=== PATIENT | female | born 1945 | race Caucasian/White ===

== ENCOUNTER → 2023-10-30 06:20 | Day surgery (SDC) | payer OTHER, SELFPAY | LOC: GI 06:20 | PROVIDERS: ATTENDING PHYSICIAN Specialist | DX: K51.50 Left sided colitis without complications (principal) | CPT/HCPCS: 45380; 88305; 88341; 88342 ==

== ENCOUNTER → 2023-11-06 07:49 | Outpatient (REF) | payer OTHER, SELFPAY | LOC: RAD 07:49 | PROVIDERS: ATTENDING PHYSICIAN Specialist; FAMILY PHYSICIAN Internal Medicine | DX: R79.89 Other specified abnormal findings of blood chemistry (principal); K51.90 Ulcerative colitis, unspecified, without complications | CPT/HCPCS: 76700 ==

== ENCOUNTER → 2024-01-07 10:59 | Outpatient (REF) | payer OTHER, SELFPAY | LOC: WDC 10:59 | PROVIDERS: ATTENDING PHYSICIAN Internal Medicine | DX: Z12.31 Encounter for screening mammogram for malignant neoplasm of breast (principal) | CPT/HCPCS: 77063; 77067 ==